=== PATIENT | male | born 1970 | race African-American/Black ===

== ENCOUNTER 2017-07-19 14:58 | Emergency (ER) | payer OTHER ==
[~2017-07-19] VITALS: Ht 167.6 cm; Wt 82.0 kg
[2017-07-19 15:30] LABS: BASOPHILS % 0.6 % (0.0-2.0); EOSINOPHILS % 3.4 % (0.0-5.0); HEMATOCRIT. 38.4 % (42.0-52.0); HEMOGLOBIN. 13.3 g/dL (14.0-18.0); LYMPHOCYTES % 29.3 % (20.0-50.0); MEAN CORPUSCULAR HEMOGLOBIN 27.7 pg (28.0-32.0); MEAN PLATELET VOLUME 8.6 fl (7.4-10.4); MONOCYTES % 4.1 % (2.0-8.0); NEUTROPHILS % 62.6 % (40.0-76.0); PLATELET 228 x1000/uL (130-400); RED CELL DISTRIBUTION WIDTH 14.3 % (11.6-14.6)
[2017-07-19 15:35] LABS: CHLORIDE 105 mEq/L (98-107); PROTHROMBIN TIME 10.7 sec (9.4-11.6)
[2017-07-19] MEDS ORDERED: MORPHINE SULFATE 4 MG/ML CPJ (NOT FOR IM USE) IV STA (18:38)
[2017-07-19] MEDS ORDERED: SODIUM CHLORIDE 0.9% 1,000 ML IV ONE (18:38)
[2017-07-19] MEDS ORDERED: FAMOTIDINE 20MG/2ML VIAL IV STA (18:38)
[2017-07-19 18:43] LABS: CLARITY URINE CLEAR (CLEAR); COLOR URINE YELLOW (YELLOW); KETONES URINE NEGATIVE (NEGATIVE); LEUKOCYTE ESTERASE URINE NEGATIVE (NEGATIVE); NITRITE URINE NEGATIVE (NEGATIVE); OCCULT BLOOD URINE NEGATIVE (NEGATIVE); PH URINE 6.5 (4.5-8.0); PROTEIN URINE NEGATIVE (NEGATIVE); SPECIFIC GRAVITY URINE 1.021 (1.005-1.030)
[2017-07-19 20:03] LABS: CHLORIDE 106 mEq/L (98-107)
[2017-07-19 20:04] LABS: BASOPHILS % 0.6 % (0.0-2.0); EOSINOPHILS % 3.7 % (0.0-5.0); HEMATOCRIT. 38.8 % (42.0-52.0); HEMOGLOBIN. 13.4 g/dL (14.0-18.0); LYMPHOCYTES % 35.2 % (20.0-50.0); MEAN CORPUSCULAR HEMOGLOBIN 27.7 pg (28.0-32.0); MEAN CORPUSCULAR VOLUME 80.6 fL (80.0-94.0); MEAN PLATELET VOLUME 8.8 fl (7.4-10.4); MONOCYTES % 5.7 % (2.0-8.0); NEUTROPHILS % 54.8 % (40.0-76.0); PLATELET 227 x1000/uL (130-400); RED BLOOD CELL COUNT 4.81 mill/uL (4.7-6.1); RED CELL DISTRIBUTION WIDTH 14.4 % (11.6-14.6)
[2017-07-19 20:05] LABS: PROTHROMBIN TIME 10.7 sec (9.4-11.6)
[2017-07-19 20:07] LABS: ETHANOL BLOOD < 10 mg/dL
[2017-07-19 22:50] VITALS: BP 121/69
[2017-07-20 12:28] LABS: PHENCYCLIDINE URINE SCREEN NEGATIVE (NEGATIVE)
[2017-07-20 12:29] LABS: *AMPHETAMINES SCREEN URINE NEGATIVE (NEGATIVE); *BARBITURATES SCREEN URINE NEGATIVE (NEGATIVE); *BENZODIAZEPINES SCREEN URINE NEGATIVE (NEGATIVE); *COCAINE SCREEN URINE NEGATIVE (NEGATIVE); METHADONE URINE SCREEN NEGATIVE (NEGATIVE); OPIATES URINE SCREEN NEGATIVE (NEGATIVE)
[2017-07-20 12:39] LABS: CANNABINOID URINE SCREEN NEGATIVE (NEGATIVE)
== END 2017-07-19 22:43 | disposition home or self-care (01) ==
LOC: ER 15:21
DX: R10.31 Right lower quadrant pain (principal); I10 Essential (primary) hypertension
CPT/HCPCS: 36415; 71045; 74176; 80053; 80305; 81003; 83690; 84484; 85025; 85610; 93005; 96374; 96375; 99285; G0482; J2270; J3490; J7030; Z7610